=== PATIENT | female | born 1995 | race Caucasian/White ===

== ENCOUNTER 2022-12-06 09:18 | Emergency (ER) | payer MEDICAID ==
[~2022-12-06] VITALS: Ht 165.1 cm; Wt 75.0 kg
[2022-12-06 09:40] VITALS: BP 107/55
[2022-12-06] MEDS ORDERED: KETOROLAC 60MG/2ML VIAL IM ONE (13:15)
[2022-12-06] MEDS ORDERED: CYCLOBENZAPRINE 10MG TABLET PO ONE (13:15)
[2022-12-06 13:31] LABS: CLARITY URINE CLOUDY (CLEAR); COLOR URINE YELLOW (YELLOW); KETONES URINE NEGATIVE (NEGATIVE); LEUKOCYTE ESTERASE URINE NEGATIVE (NEGATIVE); NITRITE URINE NEGATIVE (NEGATIVE); OCCULT BLOOD URINE NEGATIVE (NEGATIVE); PROTEIN URINE NEGATIVE (NEGATIVE); SPECIFIC GRAVITY URINE 1.019 (1.005-1.030); UROBILINOGEN URINE 0.2 E.U./dL (0.2-1.0)
[2022-12-06] MEDS ORDERED: LIDOCAINE 5% PATCH TOP SCH (14:30)
[2022-12-06] MEDS ORDERED: CYCL10TA21 MT (15:31)
[2022-12-06] MEDS ORDERED: LIDO700A15 TP (15:31)
[2022-12-06] MEDS ORDERED: IBUP-2030 MT (15:31)
== END 2022-12-06 15:47 | disposition home or self-care (01) ==
LOC: ER 09:18
DX: M54.89 Other dorsalgia (principal)
CPT/HCPCS: 81003; 81025; 96372; 99283; J1885